=== PATIENT | male | born 1940 | race Caucasian/White ===

== ENCOUNTER 2018-04-08 10:09 | Outpatient (CLI) | payer OTHER | END 2018-04-08 10:10 | LOC: CARD 10:09 | PROVIDERS: ATTEND Internal Medicine Cardiovascular Disease | DX: I49.3 Ventricular premature depolarization (principal); I10 Essential (primary) hypertension; E78.5 Hyperlipidemia, unspecified | CPT/HCPCS: G0463 ==

== ENCOUNTER 2018-07-29 11:40 | Outpatient (CLI) | payer OTHER | END 2018-07-29 11:42 | LOC: CARD 11:40 | PROVIDERS: ATTEND Internal Medicine Cardiovascular Disease | DX: I10 Essential (primary) hypertension (principal); E78.5 Hyperlipidemia, unspecified; Z86.79 Personal history of other diseases of the circulatory system | CPT/HCPCS: G0463 ==

== ENCOUNTER 2018-11-24 16:21 | Outpatient (CLI) | payer OTHER ==
--- NOTE | 2018-11-24 17:50 | Diagnostic Imaging Report ---
AMANDEEP GOMEZ (YAHAIRA) - OP [facility] [address] [facility].[address] [address] Report Submission Date: Nov 24, 2018 5:30:41 PM DIRECTOR OF MARKET ANALYSIS Patient Study Name: DMITRIY RIOS Date: Nov 24, 2018 4:32:08 PM DIRECTOR OF MARKET ANALYSIS Modality Type: DX Gender: M Description: CHEST : 36 Institution: [facility] Physician: AMANDEEP GOMEZ (YAHAIRA) - OP Pa and lateral chest Clinical history :short of breath Technique pa and lateral upright Findings: The hemidiaphragms are flattened. There is cardiomegaly and aortic atherosclerosis. Pulmonary vascular congestion and redistribution are present. There bibasilar infiltrates. Bilateral costophrenic angle blunting is present. There is thoracic spondylosis. Arthritic changes are present in the shoulders Impression: Congestive heart failure and small pleural effusions. Bibasilar infiltrate Flattening of the hemidiaphragms Electronically signed on Nov 24, 2018 5:30:41 PM DIRECTOR OF MARKET ANALYSIS by: Enrique SHARIF
== END 2018-11-24 16:22 ==
LOC: LAB 16:21 → RAD 16:22
PROVIDERS: ATTEND Nurse Practitioner Family
DX: I48.91 Unspecified atrial fibrillation (principal); R53.1 Weakness; R06.02 Shortness of breath
CPT/HCPCS: 71046

== ENCOUNTER 2018-12-29 15:16 | Outpatient (CLI) | payer OTHER | END 2018-12-29 15:18 | LOC: RT 15:16 | PROVIDERS: ATTEND Nurse Practitioner Family | DX: R00.1 Bradycardia, unspecified (principal); I50.9 Heart failure, unspecified ==

== ENCOUNTER 2019-05-27 14:53 | Outpatient (CLI) | payer OTHER ==
[2019-05-27 15:23] LABS: BASOPHILS % 0.2 % (0.0-1.5); NEUTROPHILS # 3.3 # k/uL (1.4-7.7)
[2019-05-27 15:44] LABS: eGFR (Non-African) > 60
--- NOTE | 2019-05-27 15:58 | Diagnostic Imaging Report ---
HOLGER CLOUD [facility] [address] [facility] [address] [place] [address]. [id number] Report Submission Date: May 27, 2019 3:55:07 PM CDT Patient Study Name: DMITRIY RIOS Date: May 27, 2019 3:17:38 PM CDT Modality Type: DX Gender: M Description: ABD COMPLETE : 36 Institution: [facility] Physician: HOLGER CLOUD Exam: KUB. History: Heartburn. No previous studies are available for comparison. Scattered loops of bowel gas in both large and small intestine is noted with a mild amount of retained fecal material seen in the colon. No organomegaly is seen. No renal or biliary calcifications are noted. Impression: No roque consolidation or effusion. Electronically signed on May 27, 2019 3:55:07 PM CDT by: Demar SHARIF
== END 2019-05-27 14:55 ==
LOC: RT 14:53
PROVIDERS: ATTEND Family Medicine
DX: I49.9 Cardiac arrhythmia, unspecified (principal); R63.4 Abnormal weight loss; R12 Heartburn
CPT/HCPCS: 36415; 74019; 80053; 85025

== ENCOUNTER 2019-09-22 15:39 | Outpatient (CLI) | payer OTHER ==
[2019-09-22 16:03] LABS: BASOPHILS % 0.4 % (0.0-1.5); NEUTROPHILS # 3.6 # k/uL (1.4-7.7)
[2019-09-22 16:21] LABS: eGFR (Non-African) > 60
--- NOTE | 2019-09-23 05:22 | Diagnostic Imaging Report ---
PATIENT MR#: [id number] PATIENT PATIENT NAME: DMITRIY RIOS DATE OF : 1940 REFERRING PHYSICIAN: Franck Vargas EXAM DATE: 09/22/2019 ACCESSION NUMBER: [id number] EXAM DESCRIPTION: ABD COMPLETE HISTORY: ABDOMINAL DISCOMFORT AND BOWEL ISSUES COMPARISON: No pertinent prior studies are available at this time. ABDOMINAL XRAY, FRONTAL VIEW: Bowel gas pattern: Moderate gassy distention of the transverse colon. 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 No evidence of small bowel obstruction. Calcifications: No findings to suggest nephrolithiasis by x-ray sensitivity. Skeleton: Moderate S-shaped thoracolumbar scoliosis. Severe degenerative disc disease at L3-4. IMPRESSION: 1. Moderate gassy distention of the colon, without small bowel obstruction. 2. S-shaped lumbar scoliosis with degenerative spondylosis. Read by: Dr. Sergio Varner Transcribed by: Sergio Varner Transcribed Date: 09/23/2019 5:21:48 AM Electronically signed by: Dr. Sergio Varner Date signed: 09/23/2019 5:21:48 AM
== END 2019-09-22 15:50 ==
LOC: LAB 15:39
PROVIDERS: ATTEND Family Medicine
DX: R10.9 Unspecified abdominal pain (principal)
CPT/HCPCS: 36415; 74019; 80053; 83690; 85025

== ENCOUNTER 2019-10-15 10:09 | Outpatient (CLI) | payer OTHER ==
--- NOTE | 2019-10-15 14:58 | Diagnostic Imaging Report ---
PATIENT MR#: [id number] PATIENT PATIENT NAME: DMITRIY RIOS DATE OF : 1940 REFERRING PHYSICIAN: Franck Vargas EXAM DATE: 10/15/2019 ACCESSION NUMBER: [id number] EXAM DESCRIPTION: CT ABD PELVIS W/ CON CLINICAL HISTORY: PERIUMBILICAL ADBOMINAL PAIN WITH SOME WEIGHT LOSS TECHNIQUE: CT abdomen and pelvis following administration of IV contrast. 90 mL Omnipaque 350 were ad ministered IV. COMPARISON: No pertinent prior studies are available at this time. CT ABDOMEN WITH CONTRAST: Lung bases: 6 x 7 mm left lower lobe nodule. No lung base infiltrate or effusion. Mild cardiomegaly. Liver: Several hepatic cysts, largest 1.6 cm in the left lobe. No intrahepatic ductal dilation. Gallbladder: Normally distended. Multiple large laminated gallstones. Pancreas: No pancreatic duct dilation. Duodenum: Duodenal diverticulum noted. Bowel loops: Nondistended. Spleen: Normal size. Adrenals: Normal size. Kidneys: No hydronephrosis. Aorta: Normal caliber. Peritoneum: No free air. Anterior abdominal wall: Small fatty umbilical hernia. 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 Multiple diverticula of the descending and sigmoid colon, without evidence of diverticulitis. Appendix: Normal appendix is seen. Bladder: Normally distended. Pelvic organs: Unremarkable. Peritoneum: No fluid. Skeleton: Severe lumbar spondylosis with vacuum disc phenomenon at multiple levels. Grade 1 retrolist hesis of L2 over L3, and L3 over L4, and grade 1 anterolisthesis of L5 over S1 due to facet arthrosis. IMPRESSION: 1. 7 mm left lower lobe pulmonary nodule. Recommend follow-up chest CT in 6 months if patient has low risk for lung cancer, and 3 months if patient has high-risk for lung cancer. Alternately, comparison to prior exams from other institutions would be helpful to evaluate for stability. 2. Cholelithiasis, without CT evidence of cholecystitis. 3. Left sided diverticulosis, without convincing evidence of diverticulitis. 4. Severe lumbar spondylosis. Read by: Dr. Sergio Varner Transcribed by: Sergio Varner Transcribed Date: 10/15/2019 2:57:36 PM Electronically signed by: Dr. Sergio Varner Date signed: 10/15/2019 2:57:36 PM
== END 2019-10-15 10:19 ==
LOC: RAD 10:09
PROVIDERS: ATTEND Family Medicine
DX: R10.33 Periumbilical pain (principal)
CPT/HCPCS: 74177; Q9967